=== PATIENT | male | born 1960 | race Caucasian/White ===

== ENCOUNTER 2016-07-01 13:52 | Inpatient (IN) | payer SELFPAY ==
[~2016-07-01] VITALS: Ht 180.3 cm; Wt 83.5 kg
[~2016-07-01 13:52] MED LIST: CYCL-36 PO; DICL50 PO
[2016-07-01 13:54] VITALS: BP 137/72; PULSE 90; RESP 20; TEMP 99.1; O2SAT 98
[2016-07-01 14:40] VITALS: RESP 16; O2SAT 98
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
--- NOTE | 2016-07-01 15:18 | RADRPT ---
EXAM DATE/TIME: 07/01/2016 15:15 [facility] COMPARISON: No previous studies available for comparison. INDICATIONS : Cough, chest congestion for 1 week MEDICAL HISTORY : None. SURGICAL HISTORY : None. ENCOUNTER: Initial ACUITY: 1 week PAIN SCORE: 0/10 LOCATION: Bilateral chest FINDINGS: A single view of the chest demonstrates the lungs to be symmetrically aerated without evidence of mas s, infiltrate or effusion. The cardiomediastinal contours are unremarkable. Osseous structures are intact. CONCLUSION: Normal examination for a patient of this age. Ky Elena MD on July 01, 2016 at 15:16 Board Certified Radiologist. This report was verified electronically.
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
[2016-07-01 15:30] LABS: AUTOMATED NEUTROPHIL # 19.6 TH/MM3 (1.8-7.7); BASOPHIL # 0.2 TH/MM3 (0-0.2); BASOPHIL % 0.9 % (0.0-2.0); EOSINOPHIL # 0.1 TH/MM3 (0-0.4); EOSINOPHIL % 0.3 % (0.0-4.0); HEMATOCRIT 36.1 % (39.0-51.0); HEMO FLAGS DIFF FINAL; LYMPH % 4.7 % (9.0-44.0); LYMPHOCYTE # 1.1 TH/MM3 (1.0-4.8); MEAN CORPUSCULAR HGB CONC 33.7 % (32.0-36.0); MONO % 7.4 % (0.0-8.0); NEUT % 86.7 % (16.0-70.0); PLATELET COUNT 265 TH/MM3 (150-450); RED BLOOD COUNT 3.81 MIL/MM3 (4.50-5.90); RED CELL DISTRIBUTION WIDTH 12.9 % (11.6-17.2); WHITE BLOOD COUNT 22.6 TH/MM3 (4.0-11.0)
[2016-07-01 15:41] LABS: APTT (PATIENT) 32.6 SEC (24.3-30.1); PROTHROMBIN TIME - PATIENT 11.5 SEC (9.8-11.6)
[2016-07-01 15:56] LABS: ANION GAP 8 MEQ/L (5-15); AST (GOT) 27 U/L (15-37); BICARBONATE 26.1 MEQ/L (21.0-32.0); BLOOD UREA NITROGEN 9 MG/DL (7-18); CHLORIDE 101 MEQ/L (98-107); GLOMERULAR FILTRATION RATE 73 ML/MIN (>89); POTASSIUM 3.3 MEQ/L (3.5-5.1); SODIUM (NA) 135 MEQ/L (136-145)
[2016-07-01 15:59] LABS: ALKALINE PHOSPHATASE 86 U/L (45-117); ALT (GPT) 37 U/L (12-78); TOTAL BILIRUBIN ADULT 0.5 MG/DL (0.2-1.0)
[2016-07-01] MEDS ORDERED: TETANUS/DIPHTHERIA TOXOID ADULT 0.5 ML VIAL IM ONE (16:00)
[2016-07-01] MEDS ORDERED: VANCOMYCIN INJ 1,000 MG in SODIUM CHLOR 0.9% 250 ML INJ 250 ML IV ONE (16:00)
[2016-07-01] MEDS ORDERED: ASPI81TA5 PO (16:06)
[2016-07-01] MEDS ORDERED: Vancomycin Consult Pharmacy 1 EA OTHER SCH (17:30)
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
[2016-07-01] MEDS ORDERED: POTASSIUM CHLORIDE 20 MEQ CONTROLLED RELEASE TAB PO ONE (17:45)
[2016-07-01] MEDS: cefTRIAXone INJ 1,000 MG in SODIUM CHLORIDE 0.9% INJ 100 ML IV SCH (17:57)
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
[2016-07-01] MEDS: HEPARIN SODIUM - SQ 10,000 UNITS/ML VIAL SQ SCH (17:58)
[2016-07-01 20:00] VITALS: BP 123/58; PULSE 81; RESP 17; TEMP 100.3; O2SAT 98
[2016-07-01] MEDS: LACTOBACILLUS ACIDOPHILUS TAB PO SCH (21:00)
[2016-07-01] MEDS: SODIUM CHLORIDE 0.9% FLUSH 10 ML FLUSH IV FLUSH SCH (21:22)
[2016-07-02] VITALS: BP 117/60; PULSE 76; RESP 17; TEMP 98.7; O2SAT 99
[2016-07-02] MEDS: BACITRACIN TOP OINT 15 GM TUBE TOPICAL SCH ×3 (03:49→21:38)
[2016-07-02] MEDS: VANCOMYCIN INJ 1,000 MG in SODIUM CHLOR 0.9% 250 ML INJ 250 ML IV SCH ×2 (03:49→14:29)
[2016-07-02 05:13] LABS: AUTOMATED NEUTROPHIL # 12.8 TH/MM3 (1.8-7.7); BASOPHIL # 0.1 TH/MM3 (0-0.2); BASOPHIL % 0.3 % (0.0-2.0); EOSINOPHIL # 0.2 TH/MM3 (0-0.4); EOSINOPHIL % 1.1 % (0.0-4.0); HEMATOCRIT 33.7 % (39.0-51.0); HEMO FLAGS DIFF FINAL; LYMPH % 9.3 % (9.0-44.0); LYMPHOCYTE # 1.4 TH/MM3 (1.0-4.8); MEAN CELL VOLUME 95.9 FL (80.0-100.0); MEAN CORPUSCULAR HEMOGLOBIN 32.1 PG (27.0-34.0); MEAN CORPUSCULAR HGB CONC 33.5 % (32.0-36.0); MONO % 7.2 % (0.0-8.0); NEUT % 82.1 % (16.0-70.0); PLATELET COUNT 254 TH/MM3 (150-450); RED BLOOD COUNT 3.52 MIL/MM3 (4.50-5.90); RED CELL DISTRIBUTION WIDTH 12.3 % (11.6-17.2); WHITE BLOOD COUNT 15.6 TH/MM3 (4.0-11.0)
[2016-07-02 05:31] LABS: BICARBONATE 26.8 MEQ/L (21.0-32.0); POTASSIUM 3.8 MEQ/L (3.5-5.1)
[2016-07-02] MEDS: cefTRIAXone INJ 1,000 MG in SODIUM CHLORIDE 0.9% INJ 100 ML IV SCH ×2 (05:51→17:15)
[2016-07-02] MEDS: HEPARIN SODIUM - SQ 10,000 UNITS/ML VIAL SQ SCH ×2 (05:52→17:15)
[2016-07-02] MEDS: SODIUM CHLORIDE 0.9% FLUSH 10 ML FLUSH IV FLUSH SCH ×2 (09:00→21:39)
[2016-07-02] MEDS: ACETAMINOPHEN 500 MG CPLT PO PRN (09:25)
[2016-07-02] MEDS: LACTOBACILLUS ACIDOPHILUS TAB PO SCH ×2 (09:25→21:39)
--- NOTE | 2016-07-02 10:14 | HHI.PR ---
Subjective Remarks Follow-up sepsis/cellulitis left arm and left leg 07/02/16-patient seen and examined MAXIMUM TEMPERATURE 100.3 at 8 PM however currently afebrile. Patient is up and AMBULATED;he denies any significant left leg pain.1#4 positive Blood culture Objective Vitals Vital Signs Date Time Temp Pulse Resp B/P Pulse Ox O2 Delivery O2 Flow Rate FiO2 07/02/16 00:00 98.7 76 17 117/60 99 07/01/16 20:00 100.3 81 17 123/58 98 07/01/16 14:40 16 98 Room Air 07/01/16 14:32 16 98 Room Air 07/01/16 13:54 99.1 90 20 137/72 98 Room Air I/O 07/01/16 07/01/16 07/01/16 07/02/16 07/02/16 07/02/16 07:00 15:00 23:00 07:00 15:00 23:00 Intake Total 240 ml 540 ml Balance 240 ml 540 ml Intake Oral 240 ml 240 ml IV Total 300 ml # Voids 1 2 Result Diagram: 07/02/16 0432 07/02/16 0432 Imaging Last Impressions Tibia/Fibula X-Ray 07/01/161428 Signed Impressions: Service Date/Time: Friday, July 01, 2016 15:13 - CONCLUSION: No acute fracture. Ky Elena MD Radius/Ulna X-Ray 07/01/161428 Signed Impressions: Service Date/Time: Friday, July 01, 2016 15:09 - CONCLUSION: Unremarkable exam. Ky Elena MD Hand X-Ray 07/01/161428 Signed Impressions: Service Date/Time: Friday, July 01, 2016 15:11 - CONCLUSION: Normal examination for a patient of this age. Ky Elena MD Elbow X-Ray 07/01/161428 Signed Impressions: Service Date/Time: Friday, July 01, 2016 15:06 - CONCLUSION: Unremarkable exam. Ky Elena MD Chest X-Ray 07/01/161428 Signed Impressions: Service Date/Time: Friday, July 01, 2016 15:15 - CONCLUSION: Normal examination for a patient of this age. Ky Elena MD Upper Extremity Ultrasound 07/01/16 0000 Signed Impressions: Service Date/Time: Friday, July 01, 2016 16:52 - CONCLUSION: There are edematous soft tissues of the left arm. No loculated fluid collections are seen to indicate an abscess at this time. Ky Elena MD Objective Remarks GENERAL: NAD SKIN: Warm and dry. HEAD: Normocephalic. EYES: No scleral icterus. No injection or drainage. NECK: Supple, trachea midline. No JVD or lymphadenopathy. CARDIOVASCULAR: Regular rate and rhythm without murmurs, gallops, or rubs. RESPIRATORY: Breath sounds equal bilaterally. No accessory muscle use. GASTROINTESTINAL: Abdomen soft, non-tender, nondistended. MUSCULOSKELETAL: No cyanosis, or edema. BACK: Nontender without obvious deformity. No CVA tenderness. A/P Problem List: (1) Sepsis ICD Code: A41.9 Status: Acute (2) Cellulitis of arm, left ICD Code: L03.114 Status: Acute (3) Cellulitis of left lower leg ICD Code: L03.116 Status: Acute (4) IFG (impaired fasting glucose) ICD Code: R73.01 Status: Acute Assessment and Plan 55-year-old man with Sepsis Cellulitis, left arm Cellulitis left leg - Continue Vancomycin 1 g every 12 hours, Rocephin 1 g every 12 hours, Lactinex BID pending blood and wound culture - Bacitracin to the wound, wound care - US of the left upper arm there are edematous soft tissue of the left arm. No loculated fluid collections are seen to indicate an abscess at this time. - Monitor CBC, CMP Bacteremia?+1#4 blood culture therefore will repeat Blood culture. Continue treatment as in above and consider ID consult if positive Hyponatremia: Resolved Hypokalemia -Resolved s/p Potassium supplement IFG: Check HgA1C and treat accordingly DVT prop heparin Jeremias Loyd MD Jul 02, 2016 10:14
--- NOTE | 2016-07-02 10:28 | EKG ---
Date Performed: 07/01/2016 Time Performed: 14:37:28 PTAGE: 55 years EKG: Sinus rhythm VOLTAGE CRITERIA FOR LVH ABNORMAL ECG NO PREVIOUS TRACING DOCTOR: Tiffany Sy Interpretating Date/Time 07/02/2016 10:25:39
[2016-07-02 12:00] VITALS: BP 107/62; PULSE 57; RESP 16; TEMP 97.9; O2SAT 99
[2016-07-02 16:00] VITALS: BP 106/65; PULSE 68; RESP 16; TEMP 96.7; O2SAT 96
[2016-07-02 20:00] VITALS: BP 110/70; PULSE 70; RESP 17; TEMP 98.8; O2SAT 98
[2016-07-03] VITALS: BP 107/69; PULSE 70; RESP 17; TEMP 97.9; O2SAT 98
[2016-07-03] MEDS ORDERED: PHARMACY ORDERED LAB ONE (03:45)
[2016-07-03] MEDS: VANCOMYCIN INJ 1,000 MG in SODIUM CHLOR 0.9% 250 ML INJ 250 ML IV SCH (04:35)
[2016-07-03] MEDS: HEPARIN SODIUM - SQ 10,000 UNITS/ML VIAL SQ SCH ×2 (05:32→17:51)
[2016-07-03] MEDS: cefTRIAXone INJ 1,000 MG in SODIUM CHLORIDE 0.9% INJ 100 ML IV SCH ×2 (05:33→17:51)
[2016-07-03 05:50] LABS: AUTOMATED NEUTROPHIL # 9.4 TH/MM3 (1.8-7.7); BASOPHIL % 0.4 % (0.0-2.0); EOSINOPHIL # 0.2 TH/MM3 (0-0.4); EOSINOPHIL % 1.7 % (0.0-4.0); HEMATOCRIT 34.4 % (39.0-51.0); HEMO FLAGS DIFF FINAL; LYMPH % 14.1 % (9.0-44.0); LYMPHOCYTE # 1.8 TH/MM3 (1.0-4.8); MEAN CELL VOLUME 96.2 FL (80.0-100.0); MEAN CORPUSCULAR HEMOGLOBIN 31.9 PG (27.0-34.0); MEAN CORPUSCULAR HGB CONC 33.2 % (32.0-36.0); MONO % 8.2 % (0.0-8.0); NEUT % 75.6 % (16.0-70.0); PLATELET COUNT 299 TH/MM3 (150-450); RED BLOOD COUNT 3.57 MIL/MM3 (4.50-5.90); RED CELL DISTRIBUTION WIDTH 12.6 % (11.6-17.2); WHITE BLOOD COUNT 12.5 TH/MM3 (4.0-11.0)
[2016-07-03 06:02] LABS: ANION GAP 10 MEQ/L (5-15); BICARBONATE 26.3 MEQ/L (21.0-32.0); BLOOD UREA NITROGEN 7 MG/DL (7-18); CHLORIDE 107 MEQ/L (98-107); GLOMERULAR FILTRATION RATE 96 ML/MIN (>89); POTASSIUM 3.7 MEQ/L (3.5-5.1); SODIUM (NA) 143 MEQ/L (136-145)
[2016-07-03 08:00] VITALS: BP 112/66; PULSE 57; RESP 20; TEMP 96.9; O2SAT 99
[2016-07-03] MEDS: SODIUM CHLORIDE 0.9% FLUSH 10 ML FLUSH IV FLUSH SCH ×2 (09:26→23:03)
[2016-07-03] MEDS: LACTOBACILLUS ACIDOPHILUS TAB PO SCH ×2 (09:27→23:00)
[2016-07-03] MEDS: BACITRACIN TOP OINT 15 GM TUBE TOPICAL SCH ×2 (09:27→23:00)
[2016-07-03] MEDS: ACETAMINOPHEN 500 MG CPLT PO PRN (09:43)
[2016-07-03 12:00] VITALS: BP 111/69; PULSE 62; RESP 20; TEMP 97.3; O2SAT 96
--- NOTE | 2016-07-03 13:22 | HHI.PR ---
Subjective Remarks Follow-up sepsis/cellulitis left arm and left leg 07/02/16-patient seen and examined MAXIMUM TEMPERATURE 100.3 at 8 PM however currently afebrile. Patient is up and AMBULATED;he denies any significant left leg pain.1#4 positive Blood culture 07/03/16-patient seen and examined, currently afebrile, now with significant range of motion to left elbow, decreasing in swelling to left arm Objective Vitals Vital Signs Date Time Temp Pulse Resp B/P Pulse Ox O2 Delivery O2 Flow Rate FiO2 07/03/16 12:00 97.3 62 20 111/69 96 07/03/16 08:00 96.9 57 20 112/66 99 07/03/16 00:00 97.9 70 17 107/69 98 07/02/16 20:00 98.8 70 17 110/70 98 07/02/16 16:00 96.7 68 16 106/65 96 I/O 07/02/16 07/02/16 07/02/16 07/03/16 07/03/16 07/03/16 07:00 15:00 23:00 07:00 15:00 23:00 Intake Total 540 ml 480 ml 240 ml Output Total 700 ml Balance 540 ml -700 ml 480 ml 240 ml Intake Oral 240 ml 480 ml 240 ml IV Total 300 ml Output Urine Total 700 ml # Voids 2 4 3 2 # Bowel Movements 1 1 Result Diagram: 07/03/1644607/03/16446 Objective Remarks GENERAL: NAD SKIN: Warm and dry. Improving erythema to left arm HEAD: Normocephalic. EYES: No scleral icterus. No injection or drainage. NECK: Supple, trachea midline. No JVD or lymphadenopathy. CARDIOVASCULAR: Regular rate and rhythm without murmurs, gallops, or rubs. RESPIRATORY: Breath sounds equal bilaterally. No accessory muscle use. GASTROINTESTINAL: Abdomen soft, non-tender, nondistended. MUSCULOSKELETAL: No cyanosis, or edema. RUE decreasing in size with improving erythema BACK: Nontender without obvious deformity. No CVA tenderness. A/P Problem List: (1) Sepsis ICD Code: A41.9 Status: Acute (2) Cellulitis of arm, left ICD Code: L03.114 Status: Acute (3) Cellulitis of left lower leg ICD Code: L03.116 Status: Acute (4) IFG (impaired fasting glucose) ICD Code: R73.01 Status: Acute Assessment and Plan 55-year-old man with Sepsis Cellulitis, left arm Cellulitis left leg - Continue Vancomycin 1 g every 12 hours, Rocephin 1 g every 12 hours, Lactinex BID pending blood and wound culture - Bacitracin to the wound, wound care - US of the left upper arm there are edematous soft tissue of the left arm. No loculated fluid collections are seen to indicate an abscess at this time. - Monitor CBC, CMP Bacteremia?+1#4 blood culture however repeat BC NTD-therefore this appears to be a contaminant Hyponatremia: Resolved Hypokalemia -Resolved s/p Potassium supplement IFG: HgA1C pending and treat accordingly DVT prop heparin Discharge Planning Likely discharge in 1 day Jeremias Loyd MD Jul 03, 2016 13:22
[2016-07-03 16:00] VITALS: BP 114/63; PULSE 61; RESP 20; TEMP 97.6; O2SAT 98
[2016-07-03] MEDS: VANCOMYCIN INJ 1,250 MG in SODIUM CHLOR 0.9% 250 ML INJ 250 ML IV SCH (16:10)
[2016-07-03 16:54] LABS: HEMOGLOBIN A1a 1.3 %; HEMOGLOBIN A1b 1.4 %; HEMOGLOBIN Ao 85.2 %; HEMOGLOBIN LA1C 2.1 %; HEMOGLOBIN P3 3.8 %
[2016-07-03 20:00] VITALS: BP 121/69; PULSE 63; RESP 17; TEMP 97.5; O2SAT 100
[2016-07-03] MEDS: KETOROLAC TROMETHAMINE 30 MG/ML (IVP) VIAL IVP PRN (23:04)
[2016-07-04] VITALS: BP 124/66; PULSE 68; RESP 17; TEMP 98.2; O2SAT 100
[2016-07-04] MEDS: VANCOMYCIN INJ 1,250 MG in SODIUM CHLOR 0.9% 250 ML INJ 250 ML IV SCH ×2 (01:57→11:57)
[2016-07-04] MEDS: SODIUM CHLORIDE 0.9% FLUSH 10 ML FLUSH IV FLUSH PRN ×2 (01:57→05:21)
[2016-07-04] MEDS: cefTRIAXone INJ 1,000 MG in SODIUM CHLORIDE 0.9% INJ 100 ML IV SCH (05:21)
[2016-07-04] MEDS: HEPARIN SODIUM - SQ 10,000 UNITS/ML VIAL SQ SCH (05:21)
[2016-07-04 06:22] LABS: BASOPHIL # 0.1 TH/MM3 (0-0.2); BASOPHIL % 0.7 % (0.0-2.0); EOSINOPHIL # 0.2 TH/MM3 (0-0.4); EOSINOPHIL % 1.7 % (0.0-4.0); HEMO FLAGS DIFF FINAL; LYMPH % 19.3 % (9.0-44.0); LYMPHOCYTE # 2.2 TH/MM3 (1.0-4.8); MEAN CELL VOLUME 94.5 FL (80.0-100.0); MEAN CORPUSCULAR HEMOGLOBIN 31.7 PG (27.0-34.0); MEAN CORPUSCULAR HGB CONC 33.6 % (32.0-36.0); MONO % 7.6 % (0.0-8.0); NEUT % 70.7 % (16.0-70.0); PLATELET COUNT 338 TH/MM3 (150-450); RED CELL DISTRIBUTION WIDTH 12.9 % (11.6-17.2); WHITE BLOOD COUNT 11.3 TH/MM3 (4.0-11.0)
[2016-07-04 08:00] VITALS: BP 129/75; PULSE 63; RESP 18; TEMP 97.1; O2SAT 97
[2016-07-04] MEDS: SODIUM CHLORIDE 0.9% FLUSH 10 ML FLUSH IV FLUSH SCH (09:26)
[2016-07-04] MEDS: LACTOBACILLUS ACIDOPHILUS TAB PO SCH (09:26)
[2016-07-04] MEDS: KETOROLAC TROMETHAMINE 30 MG/ML (IVP) VIAL IVP PRN (09:27)
[2016-07-04] MEDS: BACITRACIN TOP OINT 15 GM TUBE TOPICAL SCH (09:28)
--- NOTE | 2016-07-04 11:37 | HHI.PR ---
Subjective Remarks Follow-up sepsis/cellulitis left arm and left leg 07/02/16-patient seen and examined MAXIMUM TEMPERATURE 100.3 at 8 PM however currently afebrile. Patient is up and AMBULATED;he denies any significant left leg pain.1#4 positive Blood culture 07/03/16-patient seen and examined, currently afebrile, now with significant range of motion to left elbow, decreasing in swelling to left arm 07/04/16-patient seen and examined, stable, afebrile, left elbow draining Objective Vitals Vital Signs Date Time Temp Pulse Resp B/P Pulse Ox O2 Delivery O2 Flow Rate FiO2 07/04/16 08:00 97.1 63 18 129/75 97 07/04/16 00:00 98.2 68 17 124/66 100 07/03/16 20:00 97.5 63 17 121/69 100 07/03/16 16:00 97.6 61 20 114/63 98 07/03/16 12:00 97.3 62 20 111/69 96 I/O 07/03/16 07/03/16 07/03/16 07/04/16 07/04/16 07/04/16 07:00 15:00 23:00 07:00 15:00 23:00 Intake Total 240 ml 480 ml 240 ml 240 ml Balance 240 ml 480 ml 240 ml 240 ml Intake Oral 240 ml 480 ml 240 ml 240 ml # Voids 2 3 2 2 # Bowel Movements 0 Result Diagram: 07/04/16 0521 07/04/16 0521 Imaging Last Impressions Tibia/Fibula X-Ray 07/01/161428 Signed Impressions: Service Date/Time: Friday, July 01, 2016 15:13 - CONCLUSION: No acute fracture. Ky Elena MD Radius/Ulna X-Ray 07/01/161428 Signed Impressions: Service Date/Time: Friday, July 01, 2016 15:09 - CONCLUSION: Unremarkable exam. Ky Elena MD Hand X-Ray 07/01/161428 Signed Impressions: Service Date/Time: Friday, July 01, 2016 15:11 - CONCLUSION: Normal examination for a patient of this age. Ky Elena MD Elbow X-Ray 07/01/161428 Signed Impressions: Service Date/Time: Friday, July 01, 2016 15:06 - CONCLUSION: Unremarkable exam. Ky Elena MD Chest X-Ray 07/01/16 1429 Signed Impressions: Service Date/Time: Friday, July 01, 2016 15:15 - CONCLUSION: Normal examination for a patient of this age. Ky Elena MD Upper Extremity Ultrasound 07/01/16 0000 Signed Impressions: Service Date/Time: Friday, July 01, 2016 16:52 - CONCLUSION: There are edematous soft tissues of the left arm. No loculated fluid collections are seen to indicate an abscess at this time. Ky Elena MD Objective Remarks GENERAL: NAD SKIN: Warm and dry. Improving erythema to left arm HEAD: Normocephalic. EYES: No scleral icterus. No injection or drainage. NECK: Supple, trachea midline. No JVD or lymphadenopathy. CARDIOVASCULAR: Regular rate and rhythm without murmurs, gallops, or rubs. RESPIRATORY: Breath sounds equal bilaterally. No accessory muscle use. GASTROINTESTINAL: Abdomen soft, non-tender, nondistended. MUSCULOSKELETAL: No cyanosis, or edema. RUE decreasing in size with improving erythema BACK: Nontender without obvious deformity. No CVA tenderness. Procedures none A/P Problem List: (1) Sepsis ICD Code: A41.9 Status: Resolved (2) Cellulitis of arm, left ICD Code: L03.114 Status: Acute (3) Cellulitis of left lower leg ICD Code: L03.116 Status: Acute (4) IFG (impaired fasting glucose) ICD Code: R73.01 Status: Resolved Assessment and Plan 55-year-old man with Sepsis -Resolved Cellulitis, left arm Cellulitis left leg - Continue Vancomycin 1 g every 12 hours, Rocephin 1 g every 12 hours, Lactinex BID pending blood and wound culture - Bacitracin to the wound, wound care - US of the left upper arm there are edematous soft tissue of the left arm. No loculated fluid collections are seen to indicate an abscess at this time. Bacteremia?+1#4 blood culture however repeat BC NTD-therefore this appears to be a contaminant Hyponatremia: Resolved Hypokalemia -Resolved s/p Potassium supplement IFG: HgA1C 5.7 DVT prop heparin Discharge Planning Discharge home Jeremias Loyd MD Jul 04, 2016 11:37
[2016-07-04] MEDS ORDERED: BACT800T5 PO (11:39)
[2016-07-04] MEDS ORDERED: CEPH-460 PO (11:39)
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
[2016-07-04 12:00] VITALS: BP 117/58; PULSE 64; RESP 18; TEMP 97.6; O2SAT 99
[2016-07-05] MEDS ORDERED: PHARMACY ORDERED LAB ONE (02:45)
== END 2016-07-04 15:50 | disposition home or self-care (01) | DRG 872 ==
LOC: NEPC 13:52 → NEDA 16:25 → N07B 18:25
PROVIDERS: ADMIT Hospitalist; ATTEND Hospitalist
DX: A41.9 Sepsis, unspecified organism (principal); E87.1 Hypo-osmolality and hyponatremia; L03.116 Cellulitis of left lower limb; L03.114 Cellulitis of left upper limb; E87.6 Hypokalemia; Z72.0 Tobacco use; W19.XXXA Unspecified fall, initial encounter; Y92.9 Unspecified place or not applicable
CPT/HCPCS: 71010; 73080; 73090; 73130; 73590; 76882; 80048; 80053; 80202; 82565; 83036; 83605; 85025; 85610; 85730; 87040; 87186; 87205; 90471; 90714; 93005; 96365; J0696; J1644; J1885; J3370; J7050